=== PATIENT | male | born 1960 | race Caucasian/White ===

== ENCOUNTER → 2017-05-27 | Day surgery (SDC) | payer OTHER ==
[2017-05-27] VITALS (9 sets, daily range): BP systolic 99–147; BP diastolic 62–90; PULSE 60–81; RESP 12–21; O2SAT 94–100
[~2017-05-27] VITALS: Ht 172.7 cm; Wt 84.2 kg
[~2017-05-27] MED LIST: Bupivacaine-MPF 0.5% 30 mL Inj INFILTRATE ONE; CeFAZolin 2 Gm/50 mL D5W IV Premix IV ONE; Dexamethasone 4 mg/mL Inj IVPUSH PRN; EPHEDrine Sulfate 50 mg/mL Inj IVPUSH PRN; HYDROmorphone 1 mg/mL Inj IVPUSH PRN; Lactated Ringer's 1,000 ML IV SCH; Lactated Ringer's 500 ML IV PRN; METF500T4 PO; MetoCLOpramide 5 mg/mL 2 mL Inj IVPUSH PRN; Ondansetron 2 mg/mL 2 mL Inj IVPUSH PRN; Phenylephrine 10,000 mCg/mL Inj IVPUSH PRN; fentaNYL-PF 50 mCg/mL 2 mL Inj IVPUSH PRN; oxyCODONE-Acetamin 5-325 mg Tablet PO PRN
[2017-05-27] MEDS: Lactated Ringer's 1,000 ML IV SCH ×3 (05:38→12:30)
--- NOTE | 2017-05-27 11:04 | PCM.HPANE ---
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), Denies:: Anesthesia Reactions Diabetes History Hx Diabetes?: Yes Type of Diabetes: Type II Glycemic Control: Oral Medication Current Bedside Blood Glucose: 114 Medications Home Meds Incl Beta Redd: No Reported Medications Metformin 500 Mg [id number] Mg PO BID Ref 0 05/19/17 History History of ENT Problems?: Yes HEENT History: Positive for:: 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) Denture Type: Partial- Upper Teeth Condition: Broken Teeth Hx of Heart Problems?: No Cardiovascular History: Denies:: Coronary Artery Disease Hx of Respiratory Problem?: No Respiratory History: Denies:: COPD Hx Neurologic Problems?: No Hx of GI Problems?: Yes Other GI Pertinent History: recurrent left inguinal hernia current admission problem, History of HCV which was reportidly cured Hx of Problems?: No Hx Musculoskeletal Problems?: No Hx of Psycho/Social Problems?: No Hx Surgeries?: Yes (sandy ing hernias, vocal cord cyst, tonsil) Hx Any Other Health Problems?: Yes Other History: Denies:: Cancer Hx Diabetes: YesBedside Blood Glucose: 114 Hx Alcohol Use: NoHx Substance Use: NoHave You Smoked inLast 12 mo: No Stop/Bang S-Snoring: Do You Snore Loudly: No T-Tired: feel tired, fatigued: No O-Obsered: Observed not breath: No P-Blood Pressure: treated: No B- Body Mass Index > 35 kg/m2: No A- Age over 50: Yes N- Neck Large Circumference: No G- Gender Male: Yes LILLIAN Total Score: 2 Risk Assessment Category Category 1A: Patient has history of documented sleep apnea, and HAS NOT received any narcotic, sedative or anesthesia administration during this stay. Category 1B: Patient has history of documented sleep apnea, and HAS received any narcotic , sedative or anesthesia administration during this stay Category 2: Patient has SUSPECTED Obstructive Sleep Apnea, and HAS received any narcotic , sedative or anesthesia administration during this stay. Category 3: Patient has SUSPECTED Obstructive Sleep Apnea and HAS NOT received narcotic, sedative or anesthesia administration during this stay. Category 4: Outpatient in Procedural Areas with known sleep apnea or who screen positive for High Risk via the STOP/BANG questionnaire. Exam Exam Vital Signs Vital Signs Date Time Temp Pulse Resp B/P Pulse Ox O2 Delivery O2 Flow Rate FiO2 05/27/17 06:15 36.3 60 18 127/71 94 Room Air General Appearance: Alert, Oriented X3, Cooperative, No Acute Distress HEENT/AIRWAY: MP 2 Lungs: Normal Air Movement Heart: Regular Rate/Rhythm Meds/Labs/Diagnostics Admission Meds Current Medications Lactated Ringer's (Lr) 1,000 ml @ 120 mls/hr Q8H20M IV Last administered on t 05:38; Start 05/27/17 at 05:00; Stop 05/27/17 at 13:19 Bedside Blood Glucose: 114 Plan Impression Patient chart reviewed, patient interviewed and anesthestic plan with risks, benefits, and alternatives discussed, and informed consent obtained. NPO per Anesth. Guidelines: Yes ASA Physical Status: ASA2 Mod Systemic Disease Anesthetic Plan: GA Bene/Risks/Altern/Consents: Yes Chriss Rapp MD May 27, 2017 11:04
--- NOTE | 2017-05-27 16:04 | PCM.DISURG ---
Surgical Discharge Instruction Date of Service May 27, 2017 Dates of Hospitalization Date of Hospital Admission Providers Admitting Physician: Primary Care Physician: Faiza Soni Attending Physician: Jeferson Ramirez MD Diet Discharge Diet: No restrictions Activity Discharge Activity-General: Try not to overdue, Activity as pain allows, No lifting >15 pounds for 2 weeks, No driving while taking narcotic Dressing and Incisional Care Dressing Care: Allow Steri Stripes to fall off, Remove outer dressing after 24 hrs Hygiene: May shower after (24 hours), DO NOT soak incision under water, NO bathtub, hot tub or whirlpool Follow Up Plan Follow Up Plan Follow up in the general surgery clinic in 2-4 weeks. Call at any time with questions or concerns. Call your provider for: Fever, Chills, Increasing abdominal pain, Nausea, Vomiting, Wound redness, Discharge @ incision, pus discharge Taurus Cyr MD May 27, 2017 16:04
--- NOTE | 2017-05-27 17:10 | PCM.ANEP1 ---
Post Anesthesia PACU Phase 1 Assessment Vital Signs Vital Signs Date Time Temp Pulse Resp B/P Pulse Ox O2 Delivery O2 Flow Rate FiO2 05/27/17 16:43 36.4 81 16 147/88 94 Room Air 05/27/17 16:25 36.6 74 14 137/85 99 Room Air 05/27/17 16:20 76 15 141/78 99 Room Air 05/27/17 16:12 76 12 132/90 99 Room Air 05/27/17 16:08 74 15 99/62 99 Room Air 05/27/17 16:02 79 17 136/80 98 Room Air 05/27/17 15:56 36.6 77 21 141/90 100 Simple Mask 8 Anesthetic Administered: GA Level of Alertness: Awake, talking Pain: No Nausea or Vomiting: No CV Function & Hydration Stable: Yes Airway Device: None Oxygen Delivery: Room Air Lungs: Normal Air Movement PACU Phase 2 Assessment Complications: No Follow up Care: N/A Patient Instructions Provided: N/A Chriss Rapp MD May 27, 2017 17:10
--- NOTE | 2017-05-27 18:23 | OP ---
[address] [address] OPERATIVE REPORT PATIENT: TRACY KAUR : 1960 MR#: [id number] ADMIT: 05/27/2017 JOB ID: [id number] DATE OF SURGERY: 05/27/2017 PREOPERATIVE DIAGNOSIS(ES): Recurrent left inguinal hernia. POSTOPERATIVE DIAGNOSIS(ES): Recurrent left inguinal hernia, direct, along with incarcerated incisional hernia with preperitoneal fat. PROCEDURE PERFORMED: Transabdominal preperitoneal left inguinal hernia repair laparoscopically along with repair of a small incisional hernia near the umbilicus. SURGEON: Jeferson Ramirez MD. DIRECTOR NETWORK DEVELOPMENT: Tracy Cyr MD, and Yordan Singh DO. COMPLICATIONS: None. CONDITION OF THE PATIENT: Stable. INDICATIONS: The patient is a 57-year-old gentleman who was seen by my partner, Dr. Munoz, on February 21, 2017, with recurrent left inguinal hernia. He had open right inguinal hernia repair by Dr. Solorio in 2009 at [facility] and open left inguinal hernia repair by Dr. Smita Davidson in 2014. At that time, she did a mesh plug along with an overlay patch. He noticed a bulge in his left groin when he was lifting a heavy trash can in December 2016, and after discussing the risks, benefits, and alternatives, he is here today for laparoscopic left inguinal hernia repair. PROCEDURE DETAILS: He was placed in a supine position. Underwent smooth induction of general anesthesia. Had a Cantrell catheter placed and both arms were tucked and the abdomen and scrotum were prepped and draped in the usual sterile fashion. Surgical time-out was undertaken using safety checklist, and all were in agreement. I began by opening the infraumbilical incision to get down to the rectus sheath, but I did encounter incarcerated preperitoneal fat which was densely adherent to the surrounding structures. I tried to dissect it all the way around to be able to reduce it, but I was not able to, prompting me to go ahead and amputate that. At that point, I went ahead and opened the rectus sheath on the left side and swept the rectus abdominis muscle laterally, getting into the retrorectus plane and put a 12 mm port with a zero-degree camera for bluntly developing the extraperitoneal space for hernia repair. At that point, I did notice that there was a defect within the peritoneum, prompting us to insufflate the abdomen, making the preperitoneal approach much more challenging. At that time, I decided to convert to a transabdominal approach and incised the posterior rectus sheath and entered the abdomen and placed the port into the peritoneal cavity. At that time, I did notice a recurrent left inguinal hernia medially and proceeded to incise the peritoneum, creating a flap down towards the left groin while protecting the epigastric vessels. I took this plane inferiorly in a broad plane and did notice that there was a defect which was consistent with a recurrent left inguinal hernia immediately medial to the old mesh. After continuing to do the dissection inferiorly while protecting the cord structures and exposing the South ligament, we chose a 3D MAX medium left-sided mesh and placed it through the 10 mm port and anchored it to the South ligament medially, while making sure it laid flat to cover all the hernia orifices in the left groin. At that point, we used a 2-0 absorbable V-Loc suture system to go ahead and close the peritoneal defect, and after that, I placed the patient in reverse Trendelenburg position making sure the mesh stayed flat while we did that and proceeded to desufflate the abdomen and again palpated the fascia around the umbilical incision to make sure that there is no evidence of herniation of the peritoneum into the subcutaneous space. We then closed the umbilical port fascia with running 0 Prolene suture. Then umbilical skin was tacked down with 4-0 Monocryl. Skin was reapproximated with 4-0 Monocryl. Steri-Strips and a sterile dressing were applied. Patient was recovered from anesthesia and was taken to the recovery room in stable condition.
--- NOTE | 2017-06-02 16:02 | PATH ---
SURGICAL PATHOLOGY Attending Physician:Jeferson Ramirez MD CASE STATUS: Signed Out PATIENT NAME: TRACY KAUR PID: [id number] : 1960 DATE COLLECTED:05/27/2017 00:00 SPECIMEN: Hernia Sac CLINICAL HISTORY: 1). INCARCERATED VENTRAL HERNIA FINAL DIAGNOSIS: Incarcerated Ventral Hernia, Excision: Consistent with hernia sac. Negative for neoplasm. ICD10: K43.9 GROSS DESCRIPTION: The specimen is received in formalin, labeled with the patient's name, sublabeled as incarcerated ventral hernia, and consists of a piece of peres-yellow rubbery fibrofatty tissue (5.0 x 3.6 x 2.0 cm). Section code: (A, B) tissue, serially sectioned, provider service representative. 05/28/17 ICD-9 CODES: CPT CODES: 1: 59254 Electronically Signed Out Riley Reza MD, Ph.D. [facility]ology [facility] [address], [place] [address] Technical component performed at [facility], [facility] [address], [address]
== END | disposition home or self-care (01) ==
LOC: SAS 05:33
PROVIDERS: ATTEND Student in an Organized Health Care Education/Training Program
DX: K43.0 Incisional hernia with obstruction, without gangrene (principal); E11.9 Type 2 diabetes mellitus without complications; Z79.84 Long term (current) use of oral hypoglycemic drugs
CPT/HCPCS: 49560; 49651; C1781; J0690; J2175; J3010; J7120